=== PATIENT | female | born 1925 | race Caucasian/White ===

== ENCOUNTER 2016-09-13 11:43 | Emergency (ER) | payer MEDICARE, BC ==
[2016-09-13] MEDS ORDERED: SODIUM CHLORIDE 0.9% 500 ML IV STA ×2 (12:08→14:16)
[2016-09-13] MEDS ORDERED: SODIUM CHLORIDE 0.9% 1,000 ML IV STA (12:08)
[2016-09-13] MEDS ORDERED: METOPROLOL TARTRATE 5 MG/5 ML VIAL IVP ONE ×3 (12:25→15:37)
[2016-09-13 12:55] LABS: INR 1.1 (<1.1); Partial Thromboplastin Time 24.3 sec (22.0-30.0); Prothrombin Time 11.4 sec (9.0-12.0)
[2016-09-13 13:01] LABS: Basophils % (A) 1 %; CH 31.5; CHCM 35.4; Eosinophils # (A) 0.1 k/uL (0-0.7); Eosinophils % (A) 1 %; HCT 40.8 % (34.0-46.0); HDW 2.89; HGB 14.1 gm/dL (11.4-16.0); Luc # (Auto) 0.16; Luc % (Auto) 3; Lymphocytes # (A) 2.2 k/uL (1.0-4.8); Lymphocytes % (A) 39 %; MCH 30.8 pg (25.0-35.0); MCHC 34.4 g/dL (31.0-37.0); MCV 89.5 fL (80.0-100.0); Mean Platelet Volume 7.2; Monocytes # (A) 0.3 k/uL (0-1.0); Monocytes % (A) 6 %; Neutrophils # (A) 2.9 k/uL (1.3-7.7); Neutrophils % (A) 51 %; RBC 4.56 m/uL (3.80-5.40); RDW 13.4 % (11.5-15.5); WBC 5.7 k/uL (3.8-10.6); WBC (Perox) 5.57
[2016-09-13 13:05] LABS: ALT 26 U/L (9-52); AST 32 U/L (14-36); Alkaline Phosphatase 62 U/L (38-126); Anion Gap 15 mmol/L; Blood Urea Nitrogen 15 mg/dL (7-17); Calcium 9.6 mg/dL (8.4-10.2); Carbon Dioxide 22 mmol/L (22-30); Chloride 102 mmol/L (98-107); Digoxin 1.1 ng/mL; Glucose 178 mg/dL (74-99); Magnesium 1.5 mg/dL (1.6-2.3); Non-African American GFR(MDRD) >60 (>60 ml/min/1.73 sqM); Potassium 3.4 mmol/L (3.5-5.1); Sodium 139 mmol/L (137-145); Total Bilirubin 1.3 mg/dL (0.2-1.3); Total Protein 7.8 g/dL (6.3-8.2)
--- NOTE | 2016-09-13 13:09 | ED ---
ENT HPI - General Chief complaint: ENT Stated complaint: Epistaxis Time Seen by Provider: 09/13/16 11:50 Source: patient, family, RN notes reviewed Mode of arrival: wheelchair Limitations: no limitations - History of Present Illness Initial comments: This is an 89-year-old female with a history of hypertension and atrial fibrillation who presents with the onset of a nosebleed this morning. She states is worse on the left and a) he come in and out of both sides. She comes for evaluation she had been noted in triage have an elevated heart rate into the 150s. She states her normal heart rate is in the 70s. She denies any fevers chills nausea vomiting sweats or other symptoms no focal weakness. She denies any palpitations or chest pain. This time. MD complaint: epistaxis, other - Related Data Home Medications Medication Instructions Recorded Confirmed Digoxin [Digox] 125 mcg PO DAILY 10/08/15 09/13/16 Gabapentin 100 mg PO BID 10/08/15 09/13/16 Multivit-Min/FA/Lycopene/Lut 1 tab PO DAILY 10/08/15 09/13/16 [Centrum Silver Tablet] Potassium Chloride [Klor-Con M10] 10 meq PO TID 10/08/15 09/13/16 Pravastatin Sodium 40 mg PO DAILY 10/08/15 09/13/16 Losartan/Hydrochlorothiazide 1 tab PO DAILY 09/13/16 09/13/16 [Hyzaar 100-25 Tablet] Previous Rx's Medication Instructions Recorded Apixaban [Eliquis] 2.5 mg PO BID #60 tablet 10/10/15 Atenolol [Tenormin] 50 mg PO BID #60 tab 10/10/15 Allergies Allergy/AdvReac Type Severity Reaction Status Date / Time clarithromycin [From Biaxin] Allergy Nausea & Verified 09/13/16 12:15 Vomiting nitrofurantoin Allergy Nausea & Verified 09/13/16 12:15 [From Macrobid] Vomiting nitrofurantoin Allergy Nausea & Verified 09/13/16 12:15 macrocrystalline Vomiting [From Macrobid] Sulfa (Sulfonamide Allergy Nausea & Verified 09/13/16 12:15 Antibiotics) Vomiting Review of Systems ROS Statement: Those systems with pertinent positive or pertinent negative responses have been documented in the HPI. ROS Other: All systems not noted in ROS Statement are negative. Past Medical History Past Medical History: Atrial Fibrillation, GERD/Reflux, Hyperlipidemia, Hypertension, Osteoarthritis (OA) Additional Past Medical History / Comment(s): varicose veins, sinus problems, diverticulosis, kidney stone >20 years ago,sciatic nerve pain, incont of urine/ wears a pad,uti, anemia, had a pne vaccine after the age of 67-not sure of date. History of Any Multi-Drug Resistant Organisms: None Reported Past Surgical History: Adenoidectomy, Appendectomy, Tonsillectomy Additional Past Surgical History / Comment(s): rt cataracts removed,raymond, colonoscopy Past Anesthesia/Blood Transfusion Reactions: No Reported Reaction Past Psychological History: No Psychological Hx Reported Additional Psychological History / Comment(s): pt lives alone in her own home, everything accesible on one level.uses cane when needed.gets no outside services.pt still drives. Smoking Status: Never smoker Past Alcohol Use History: None Reported Past Drug Use History: None Reported - Past Family History Father Additional Family Medical History / Comment(s): from lupus Mother Family Medical History: CVA/TIA General Exam - General Exam Comments Initial Comments: This is a well-developed well-nourished awake alert oriented x3 female Limitations: no limitations General appearance: alert, anxious Head exam: Present: atraumatic, normocephalic, normal inspection Eye exam: Present: normal appearance, PERRL, EOMI. Absent: scleral icterus, conjunctival injection, periorbital swelling ENT exam: Present: mucous membranes moist, other (Patient does demonstrate fresh blood clots in the naris he does have a clamp on at this time. Examination does reveal a small nasal septal defect which is likely the source of bleeding from the right naris being transported from the left.) Neck exam: Present: normal inspection. Absent: tenderness, meningismus, lymphadenopathy Respiratory exam: Present: normal lung sounds bilaterally. Absent: respiratory distress, wheezes, rales, rhonchi, stridor Cardiovascular Exam: Present: tachycardia, irregular rhythm. Absent: systolic murmur, diastolic murmur, rubs, gallop, clicks GI/Abdominal exam: Present: soft, normal bowel sounds. Absent: distended, tenderness, guarding, rebound, rigid Extremities exam: Present: normal inspection, full ROM, normal capillary refill. Absent: tenderness, pedal edema, joint swelling, calf tenderness Back exam: Present: normal inspection Neurological exam: Present: alert, oriented X3, CN II-XII intact Psychiatric exam: Present: normal affect, normal mood Skin exam: Present: warm, dry, intact, normal color. Absent: rash Course Vital Signs 09/13/16 09/13/16 09/13/16 11:51 12:53 13:06 Temperature 97.0 F L Pulse Rate 154 H 120 H 105 H Respiratory 20 20 20 Rate Blood Pressure 187/120 218/111 187/110 O2 Sat by Pulse 97 96 95 Oximetry 09/13/16 09/13/16 09/13/16 13:56 15:00 15:54 Temperature Pulse Rate 114 H 125 H Respiratory 18 18 Rate Blood Pressure 158/121 208/134 189/122 O2 Sat by Pulse 96 96 Oximetry 09/13/16 15:55 Temperature Pulse Rate Respiratory Rate Blood Pressure 198/119 O2 Sat by Pulse Oximetry - Reevaluation(s) Reevaluation #1: 09/13/16 16:25 I did reevaluate the patient multiple occasions patient's heart rate continued to be elevated as well as her blood pressure if I did improve. I did offer the patient admission and she is refusing at this time. She's been asymptomatic since arrival after the nasal bleeding was controlled. Procedures - Procedures Initial comment: The patient persistent bleeding from the left naris. He did require packing. Patient's left nares was prepped using Afrin followed by 2% Xylocaine jelly a Rhino Rocket was then placed and the balloon was inflated using normal saline. Patient did tolerate this well. Bleeding was controlled no further bleeding. Medical Decision Making - Medical Decision Making Patient is asymptomatic she does not want to stay in hospital she'll be discharged she is being discharged the family members she will keep her follow- up appointment with her doctor in 2 days and return when necessary also she will return of the nasal packing is then taken out by her family doctor. - Lab Data Result diagrams: 09/13/16 12:36 09/13/16 12:36 Lab Results 09/13/16 09/13/16 09/13/16 Range/Units 12:36 12:36 12:36 WBC 5.7 (3.8-10.6) k/uL RBC 4.56 (3.80-5.40) m/uL Hgb 14.1 (11.4-16.0) gm/dL Hct 40.8 (34.0-46.0) % MCV 89.5 (80.0-100.0) fL MCH 30.8 (25.0-35.0) pg MCHC 34.4 (31.0-37.0) g/dL RDW 13.4 (11.5-15.5) % Plt Count 156 (150-450) k/uL Neutrophils % 51 % Lymphocytes % 39 % Monocytes % 6 % Eosinophils % 1 % Basophils % 1 % Neutrophils # 2.9 (1.3-7.7) k/uL Lymphocytes # 2.2 (1.0-4.8) k/uL Monocytes # 0.3 (0-1.0) k/uL Eosinophils # 0.1 (0-0.7) k/uL Basophils # 0.0 (0-0.2) k/uL PT 11.4 (9.0-12.0) sec INR 1.1 (<1.1) APTT 24.3 (22.0-30.0) sec Sodium (137-145) mmol/L Potassium (3.5-5.1) mmol/L Chloride (98-107) mmol/L Carbon Dioxide (22-30) mmol/L Anion Gap mmol/L BUN (7-17) mg/dL Creatinine (0.52-1.04) mg/dL Est GFR (MDRD) Af Amer (>60 ml/min/1.73 sqM) Est GFR (MDRD) Non-Af (>60 ml/min/1.73 sqM) Glucose (74-99) mg/dL Calcium (8.4-10.2) mg/dL Magnesium (1.6-2.3) mg/dL Total Bilirubin (0.2-1.3) mg/dL AST (14-36) U/L ALT (9-52) U/L Alkaline Phosphatase (38-126) U/L Total Creatine Kinase 37 (30-135) U/L CK-MB (CK-2) 1.8 (0.0-2.4) ng/mL CK-MB (CK-2) Rel Index 4.9 Total Protein (6.3-8.2) g/dL Albumin (3.5-5.0) g/dL TSH (0.465-4.680) mIU/L Digoxin ng/mL 09/13/16 Range/Units 12:36 WBC (3.8-10.6) k/uL RBC (3.80-5.40) m/uL Hgb (11.4-16.0) gm/dL Hct (34.0-46.0) % MCV (80.0-100.0) fL MCH (25.0-35.0) pg MCHC (31.0-37.0) g/dL RDW (11.5-15.5) % Plt Count (150-450) k/uL Neutrophils % % Lymphocytes % % Monocytes % % Eosinophils % % Basophils % % Neutrophils # (1.3-7.7) k/uL Lymphocytes # (1.0-4.8) k/uL Monocytes # (0-1.0) k/uL Eosinophils # (0-0.7) k/uL Basophils # (0-0.2) k/uL PT (9.0-12.0) sec INR (<1.1) APTT (22.0-30.0) sec Sodium 139 (137-145) mmol/L Potassium 3.4 L (3.5-5.1) mmol/L Chloride 102 (98-107) mmol/L Carbon Dioxide 22 (22-30) mmol/L Anion Gap 15 mmol/L BUN 15 (7-17) mg/dL Creatinine 0.67 (0.52-1.04) mg/dL Est GFR (MDRD) Af Amer >60 (>60 ml/min/1.73 sqM) Est GFR (MDRD) Non-Af >60 (>60 ml/min/1.73 sqM) Glucose 178 H (74-99) mg/dL Calcium 9.6 (8.4-10.2) mg/dL Magnesium 1.5 L (1.6-2.3) mg/dL Total Bilirubin 1.3 (0.2-1.3) mg/dL AST 32 (14-36) U/L ALT 26 (9-52) U/L Alkaline Phosphatase 62 (38-126) U/L Total Creatine Kinase (30-135) U/L CK-MB (CK-2) (0.0-2.4) ng/mL CK-MB (CK-2) Rel Index Total Protein 7.8 (6.3-8.2) g/dL Albumin 4.1 (3.5-5.0) g/dL TSH 1.890 (0.465-4.680) mIU/L Digoxin 1.1 ng/mL - EKG Data -: EKG Interpreted by Me (Atrial fibrillation with a rate of 127 occasional PVCs QRS 92 QT/QTC of 324) Disposition Clinical Impression: Accelerated hypertension, Rapid atrial fibrillation, Epistaxis Disposition: HOME SELF-CARE Condition: Good Instructions: Nosebleed (ED), Atrial Fibrillation (ED), Hypertension (ED) Additional Instructions: Nasal packing removal in 2 days
[2016-09-13 13:13] LABS: Creatine Kinase MB 1.8 ng/mL (0.0-2.4)
[2016-09-13] MEDS ORDERED: OXYMETAZOLINE 0.05% NASL SPRAY 15 ML NASAL STA (13:46)
[2016-09-13 13:57] VITALS: RESP 18
[2016-09-13] MEDS ORDERED: POTASSIUM CHLORIDE ER 20 MEQ TAB.ER PO STA (14:03)
[2016-09-13] MEDS ORDERED: MAGNESIUM SULFATE-D5W PMX 1 GM in DEXTROSE/WATER 1 100ML.BAG IVPB ONE (14:03)
[2016-09-13 16:28] VITALS: BP 176/103; PULSE 106; TEMP 97.6
== END 2016-09-13 16:42 | disposition home or self-care (01) ==
LOC: EC 11:43
DX: R04.0 Epistaxis (principal); I48.91 Unspecified atrial fibrillation; I10 Essential (primary) hypertension; E78.5 Hyperlipidemia, unspecified; Z79.899 Other long term (current) drug therapy; Z88.1 Allergy status to other antibiotic agents; Z88.2 Allergy status to sulfonamides; Z88.8 Allergy status to other drugs, medicaments and biological substances
CPT/HCPCS: 99283; 30901; 96365; 96375; 96376 ×2; 96361 ×2; 36415; 93005; 80053; 84443; 82550; 82553; 80162; 83735; 85025; 85610; 85730; J3475